=== PATIENT | male | born 1955 | race Caucasian/White ===

== ENCOUNTER → 2021-06-20 06:31 | Outpatient (CLI) | payer SELFPAY ==
--- NOTE | 2021-06-20 06:33 | CT_ITS ---
PROCEDURE: CT HEART W CALCIUM SCORE CLINICAL HISTORY: abnormal ekg, RBBB COMPARISON: No exams were available for comparison TECHNIQUE: Axial images obtained with sagittal and coronal reformats. All CT scans at the facility use one or more dose reduction, viz: automated exposure control, ma/kV adjustment per patient size (including targeted exams where dose is matched to indication, i.e. head), or iterative reconstruction technique. FINDINGS: The coronary artery calcium score is 366. Moderate calcific plaque burden with high cardiovascular disease risk. There is mild cardiomegaly. IMPRESSION: Moderate calcific plaque burden with high cardiovascular disease risk Dictated by: Marcos Duke MD 06/21/2021 12:53 Marcos Duke MD in [place] 06/21/2021 12:53
== END ==
PROVIDERS: PCP Internal Medicine; Visit Provider Internal Medicine
DX: Z13.6 Encounter for screening for cardiovascular disorders (principal); I45.10 Unspecified right bundle-branch block; E11.9 Type 2 diabetes mellitus without complications; R94.31 Abnormal electrocardiogram [ECG] [EKG]
CPT/HCPCS: 75571

== ENCOUNTER → 2021-06-20 06:35 | Outpatient (CLI) | payer OTHER, SELFPAY ==
--- NOTE | 2021-06-20 06:35 | CA_ITS ---
APPROVED REPORT EXAM: Comprehensive 2D, Doppler, and color-flow Echocardiogram Irrigation System Operator: Hannah Rivera RVT Ht: 5 ft 11 in Wt: 217lbs BSA: 2.18 BP: 136/87 mmHg Indications: ABN EKG,RBBB,HTN,FAMILY HX HD 2D Dimensions LVOT 2.39 cm (M/F) 1.5-2.5 LA Volume 32.80 mL LA Volume Index 15.04 mL/m2 (M/F) 16-34 M-Mode Dimensions RVDd 3.96 cm (0.9-2.6) LA Diam 4.24 cm (1.9-4.0) LVDd 5.20 cm (3.5-5.7) Ao Diam 3.19 cm (2.0-3.7) LVDs 3.57 cm (3.5-5.7) IVSd 1.50 cm (0.6-1.1) PWd 0.91 cm (0.6-1.1) EF (Teich) 58.80% FS 31.30% EDV (Teich) 129.50 mL TAPSE 3.15 (<1.7) ESV (Teich) 53.30 mL LV Diastology E Decel Time 207.00 (160-240 msec) E/A Ratio 1.0 MED E' 5.40 (< 7 cm/sec) E'/MED E' Ratio 13.02 (>14) LAT E' 11.60 (<10 cm/sec) E/LAT E' Ratio 6.06 (>14) Mitral Valve MV E Max Manjinder. 70.00 (40-130 cm/s) MV A Velocity 73.00 (40-130 cm/s) E/A Ratio 0.96 MV Decel. Time 207.00 (160-240 ms) MV PHT 61.00 ms Pulmonary Valve PV Peak Velocity 53.00 (50-150 cm/s) Tricuspid Valve TR P. Velocity 176.00 cm/s RAP Estimate 10.00 mmHg RVSP 22.40 mmHg Left Ventricle Left atrium is mildly enlarged, left ventricle is normal size, mild concentric left ventricular hypertrophy, visually estimated ejection fraction 55% with no regional wall motion abnormality grade 1 diastolic dysfunction seen without tissue Doppler evidence of raise left atrial pressure. Right Ventricle Right atrium and right ventricle mildly enlarged with normal contractility. Aortic Valve Aortic valve is grossly normal, there is no aortic stenosis or aortic insufficiency. Mitral Valve Mitral valve grossly normal, there is trace mitral regurgitation. Tricuspid Valve Tricuspid valve grossly normal, there is trace tricuspid regurgitation, tricuspid regurgitation jet velocity is inadequate for calculation of the right ventricular systolic pressure. Pulmonic Valve Pulmonic valve is poorly visualized. Great Vessels Aortic root is normal size. Inferior vena cava is normal size with normal inspiratory collapse. Pericardium No significant pericardial effusion noted. Conclusion 1. Mild biatrial enlargement, normal left ventricular size, mild concentric left ventricular hypertrophy, visually estimated ejection fraction 55% with no regional wall motion abnormality, grade 1 diastolic dysfunction seen without tissue Doppler evidence of raise left atrial pressure. 2. Mildly enlarged right ventricle with normal contractility. 3. Trace mitral and tricuspid regurgitation. 4. No significant pericardial effusion noted. Electronically signed by : Suman Pollack MD 06/21/2021 13:29:16
--- NOTE | 2021-06-20 06:35 | NM_ITS ---
APPROVED REPORT Exam: Nuclear Stress Test Indication: abn ECG Patient Location: Outpatient Stress Tech: Germaine Sandoval [place] Tech:Cleopatra Kaufman JAYCEE RT(R)(N) Ht: 5 ft 11 in Wt: 212 lbs HR: 76 bpm BP: 145/80 mmHg BSA: 2.16 m2 BMI: 29.5 History: abn ecg Procedure: Patient exercised on Everett protocol 7.10 minutes and sec, resting heart rate 76 bpm, resting blood pressure 145/80 mmHg, with exercise maximum heart rate achived was 140 bpm which is 90 % of the maximum predicted heart rate and blood pressure was 186/80 mmHg. Patient denied any complaint of chest pain. Patient has good exercise capacity, achieved 10.0 METs of workload on treadmill, the blood pressure response to exercise was adequate. Electrocardiogram Sinus rhythm right bundle branch block, nonspecific ST-T changes, with exercise there is less than 1.[address] segment depression noted from the baseline EKG. The EKG portion of the exercise Myoview is nondiagnostic. Cardiac Stress and Resting SPECT Images: Cardiac Stress and Resting SPECT images were obtained using technetium 99m Myoview 30.1 mCi stress and 10.70 mCi at rest. Gated SPECT for analysis of segmental wall motion and calculation of the ejection fraction also done. Cardiac stress and resting SPECT images show uniform myocardial activity without segmental perfusion abnormality, computer derived ejection fraction is 51% with no regional wall motion abnormality, right ventricle is normal size and contractility. Conclusion: 1. The EKG portion of the exercise Myoview is nondiagnostic due to baseline abnormal EKG, patient has good exercise capacity achieved 10 METS of workload on treadmill, the blood pressure response to exercise was adequate, there was no exercise-induced chest discomfort. 2. No scintigraphic evidence of reversible ischemia seen, computer derived ejection fraction is 51% with no regional wall motion abnormality, right ventricle is normal size and contractility. 3. Normal exercise Myoview study. Electronically signed by : Suman Pollack MD 06/20/2021 15:57:27
--- NOTE | 2021-06-20 06:35 | CA_ITS ---
APPROVED REPORT Exam: Exercise Treadmill Technologist: Germaine Sandoval, Ht: 5 ft 11 in Wt: 217 lbs BSA: 2.18 m2 HR: 66 bpm BP: 144/74 mmHg Medical History Medications: Amlodipine,,,,, Irbesartan,,,,, Aspirin,,,,, Allopurinol,,,,, Pantoprazole,,,,, Atorvastatin,,,,, Finasteride,,,,, MeLOXICAN,,,,, Stress Test Details Test: Everett HR Resting HR: 76 bpm Max Heart Rate (APMHR): 156.149075 bpm Max HR Achieved: 140 bpm Target HR (85% APMHR): 132.823031 bpm % of APMHR: 89.74 Recovery HR: 84 bpm BP Resting BP: 145/80 mmHg Max BP: 186/80 mmHg Recovery BP: 134.0/78.0 mmHg ECG Resting ECG: NSR, RBBB, left axis deviation Clinical Exercise duration: 07:10 min Highest Stage Achieved: Exercise capacity: 10.1 METs Stress ECG Conclusion Exercised 7:10 on Everett Protocol Max HR: 132 % of PM: 85% Max BP: 186/80 MET's: 10.1 Test stopped due to: Hip pain, SOA Symptoms: No CP. Arrhythmias/Ectopy: Occasional PVC during exercise. ST-T Changes: 1mm horizontal ST depression in lead V4 of unclear significance given the underlying RBBB. In recovery there is 1mm of horizontal and downsloping ST depression in leads I and aVL. Conclusion: Non-diagnostic GXT. Myoview images reported separately. Test Summary RECOVERY 01:00 0.0 0.0 116 . . . Stop exercise at 07:10 REST . . . . . . . Standing REST 04:33 0.0 0.0 76 . 145/ 80 . . Stage 1 01:00 10.0 1.7 89 . . . . Stage 1 02:00 10.0 1.7 93 . . . . Stage 1 03:00 10.0 1.7 99 . 172/ 84 . . Stage 2 01:00 12.0 2.5 109 . . . . Stage 2 02:00 12.0 2.5 115 . . . . Stage 2 03:00 12.0 2.5 122 . 186/ 80 . . Stage 3 . . . . . . . Cardiolite injected Stage 3 01:00 14.0 3.4 130 . . . . Stage 3 01:10 14.0 3.4 132 . . . Stop exercise at 07:10 RECOVERY 01:00 0.0 0.0 116 . . . . RECOVERY 02:00 0.0 0.0 108 . 176/ 78 . . RECOVERY 03:00 0.0 0.0 97 . 150/ 80 . . RECOVERY 04:00 0.0 0.0 95 . 140/ 78 . . RECOVERY 05:00 0.0 0.0 84 . 140/ 78 . . RECOVERY 06:00 0.0 0.0 95 . 134/ 78 . . RECOVERY 07:00 0.0 0.0 84 . 134/ 78 . . RECOVERY 07:19 0.0 0.0 86 . 134/ 78 . . Electronically signed by : Suman Pollack MD 06/20/2021 13:36:30
== END ==
PROVIDERS: PCP Internal Medicine; Visit Provider Internal Medicine
DX: I45.10 Unspecified right bundle-branch block (principal); R94.31 Abnormal electrocardiogram [ECG] [EKG]
CPT/HCPCS: 78452; 93017; 93306; A9502